=== PATIENT | male | born 1995 | race Caucasian/White ===

== ENCOUNTER 2017-11-22 20:58 | Emergency (ER) | payer SELFPAY ==
[2017-11-22 21:05] VITALS: BP 151/92; BMI 23.7
--- NOTE | 2017-11-22 21:53 | DR.GENAD ---
HPI - PCP Primary Care Physician: NFD - Complaint/Symptoms Chief Complaint:: INFLAMMATION AND REDDNESS TO 4 TH LEFT FINGER X 2 DAYS Self Treatment fo Chief Complaint: PEROXIDE, TRIPLE ANTIBIOTIC - Nurses notes reviewed Nurses Notes Review: Yes - Source History Provided: Patient - Mode of Arrival Mode of Arrival: Ambulatory - Timing Onset of Chief Complaint: 11/20/17 PMH - PMH Past Medical History: Yes Past Medical History: Asthma Past Surgical History: No - Family History History of Family Medical Conditions: No - Social History Does patient currently use any type of tobacco product: Yes Have you used tobacco products in the last 12 months: Yes Type of Tobacco Use: Cigarettes Does any household member use tobacco: Yes Alcohol Use: Occasionally Do you use any recreational Drugs:: No Lives With: Significant Other Lives Where: Home - infectious screening In the last 2 months have you had wt loss of >10#?: NO Have you had fever, night sweats or hemotysis?: No Have you traveled outside the country in the last 6 months?: No Isolation: Standard PE - Vital Signs Vitals: Temperature 96.9 F Pulse Rate 99 Respiratory Rate 18 Blood Pressure 151/92 O2 Sat by Pulse Oximetry 100 ROR - Labs Reviewed Laboratory: 11/22/17 21:54 Finger - Left Ring Gram Stain - Final 11/22/17 21:54 Finger - Left Ring Wound Culture - Preliminary - Discharge Plan Disposition: 01 HOME, SELF-CARE Condition: Stable Prescriptions: Ibuprofen [MOTRIN TAB 800 MG *] 800 mg PO Q8H PRN #20 tab PRN Reason: Pain/Inflammation Sulfamethoxazole-Trimethoprim [BACTRIM DS TAB 800/160 MG *] 1 tab PO BID #20 tab - Follow ups/Referrals Follow ups/Referrals: NFD,None [Primary Care Provider] - 3 days - Instructions Instructions: Abscess, Sode-op-Ypxh, Cellulitis, Adult, [id number] Additional Instructions: RETURN TO ED IF WORSE.
[2017-11-22] MEDS ORDERED: BACTRIM DS TAB PO ONE ×2 (21:54→21:58)
[2017-11-22] MEDS ORDERED: MOTRIN TAB 800 MG PO ONE ×2 (21:55→21:57)
== END 2017-11-22 22:00 | disposition home or self-care (01) ==
LOC: ER 21:09
DX: L02.512 Cutaneous abscess of left hand (principal); L03.012 Cellulitis of left finger
CPT/HCPCS: 87070; 87075; 87205; 99282